=== PATIENT | female | born 1965 | race Caucasian/White ===

== ENCOUNTER 2020-05-23 09:45 | Outpatient (RCR) | payer MEDICARE, OTHER, SELFPAY ==
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
--- NOTE | 2020-04-02 17:15 | P.PNPS_ITS ---
TMS Daily Progress Note Daily TMS Progress Note Date of Service: 04/02/20 Week #: 1 Treatment #(03-16): 1 PHQ-9 Pre-Treatment (03-13): 26 PHQ-9 Most Recent (03-13): 26 Reviewed: TMS Tech Note Reviewed Verification: I have reviewed the TMS Distribution Associate Note and agree with the contents. The patient remains a candidate to continue TMS treatment per pro tocol.
--- NOTE | 2020-04-03 21:11 | HO.TMSDAILY2 ---
TMS Daily Progress Note Daily TMS Progress Note Date of Service: 04/03/20 Week #: 1 Treatment #(03-16): 2 PHQ-9 Pre-Treatment (03-13): 26 PHQ-9 Most Recent (03-13): 26 Reviewed: TMS Tech Note Reviewed Verification: I have reviewed the TMS Party Plan Sales Unit Advisor Note and agree with the contents. The patient remains a candidate to continue TMS treatment per protocol.
--- NOTE | 2020-04-04 22:29 | HO.TMSDAILY2 ---
TMS Daily Progress Note Daily TMS Progress Note Date of Service: 04/04/20 Week #: 1 Treatment #(03-16): 3 PHQ-9 Pre-Treatment (03-13): 26 PHQ-9 Most Recent (03-13): 26 Reviewed: TMS Tech Note Reviewed Verification: I have reviewed the TMS Orange Picker Machine Operator Note and agree with the contents. The patient remains a candidate to continue TMS treatment per protocol.
--- NOTE | 2020-04-05 23:07 | P.PNPS_ITS ---
TMS Daily Progress Note Daily TMS Progress Note Date of Service: 04/05/20 Treatment #(03-16): 3 PHQ-9 Pre-Treatment (03-13): 26 PHQ-9 Most Recent (03-13): 26 Verification: I have reviewed the TMS Mining Detail Draftsperson Note and agree with the contents. The patient remains a candidate to continue TMS treatment per protocol.
--- NOTE | 2020-04-08 21:27 | HO.TMSDAILY2 ---
TMS Daily Progress Note Daily TMS Progress Note Date of Service: 04/08/20 Week #: 1 Treatment #(03-16): 4 PHQ-9 Pre-Treatment (03-13): 26 PHQ-9 Most Recent (03-13): 26 Reviewed: TMS Tech Note Reviewed Verification: I have reviewed the TMS Body And Frame Technician Note and agree with the contents. The patient remains a candidate to continue TMS treatment per protocol.
--- NOTE | 2020-04-09 21:29 | HO.TMSDAILY2 ---
TMS Daily Progress Note Daily TMS Progress Note Date of Service: 04/09/20 Week #: 1 Treatment #(03-16): 5 PHQ-9 Pre-Treatment (03-13): 26 PHQ-9 Most Recent (03-13): 26 Reviewed: TMS Tech Note Reviewed Verification: I have reviewed the TMS Contract Writer Note and agree with the contents. The patient remains a candidate to continue TMS treatment per protocol.
--- NOTE | 2020-04-10 22:04 | P.PNPS_ITS ---
TMS Daily Progress Note Daily TMS Progress Note Date of Service: 04/10/20 Week #: 2 Treatment #(03-16): 6 PHQ-9 Pre-Treatment (03-13): 26 PHQ-9 Most Recent (03-13): 26 Reviewed: TMS Tech Note Reviewed Verification: I have reviewed the TMS Clinical Evaluator Note and agree with the contents. The patient remains a candidate to continue TMS treatment per pro tocol.
--- NOTE | 2020-04-11 22:40 | P.PNPS_ITS ---
TMS Daily Progress Note Daily TMS Progress Note Date of Service: 04/11/20 Week #: 2 Treatment #(03-16): 7 PHQ-9 Pre-Treatment (03-13): 26 PHQ-9 Most Recent (03-13): 26 Reviewed: TMS Tech Note Reviewed Verification: I have reviewed the TMS Transportation Worker Note and agree with the contents. The patient remains a candidate to continue TMS treatment per pro tocol.
--- NOTE | 2020-04-12 23:20 | P.PNPS_ITS ---
TMS Daily Progress Note Daily TMS Progress Note Date of Service: 04/12/20 Week #: 2 Treatment #(03-16): 8 PHQ-9 Pre-Treatment (03-13): 26 PHQ-9 Most Recent (03-13): 26 Reviewed: TMS Tech Note Reviewed Verification: I have reviewed the TMS French Polisher Note and agree with the contents. The patient remains a candidate to continue TMS treatment per pro tocol.
--- NOTE | 2020-04-12 23:23 | P.PNPS_ITS ---
TMS Daily Progress Note Daily TMS Progress Note Date of Service: 04/12/20 Week #: 2 Treatment #(03-16): 8 PHQ-9 Pre-Treatment (03-13): 26 PHQ-9 Most Recent (03-13): 26 Reviewed: TMS Tech Note Reviewed Verification: I have reviewed the TMS Ornamental Iron Worker Apprentice Note and agree with the contents. The patient remains a candidate to continue TMS treatment per pro tocol.
--- NOTE | 2020-04-16 17:29 | HO.TMSDAILY2 ---
TMS Daily Progress Note Daily TMS Progress Note Date of Service: 04/16/20 Week #: 2 Treatment #(03-16): 9 PHQ-9 Pre-Treatment (03-13): 26 PHQ-9 Most Recent (03-13): 18 Reviewed: TMS Tech Note Reviewed Verification: I have reviewed the TMS Chemical Machine Tender Note and agree with the contents. The patient remains a candidate to continue TMS treatment per protocol.
--- NOTE | 2020-04-17 20:53 | P.PNPS_ITS ---
TMS Daily Progress Note Daily TMS Progress Note Date of Service: 04/17/20 Week #: 2 Treatment #(03-16): 10 PHQ-9 Pre-Treatment (03-13): 26 PHQ-9 Most Recent (03-13): 18 Reviewed: TMS Tech Note Reviewed Verification: I have reviewed the TMS Application Support Administrator Note and agree with the contents. The patient remains a candidate to continue TMS treatment per pr otocol.
--- NOTE | 2020-04-18 23:28 | P.PNPS_ITS ---
TMS Daily Progress Note Daily TMS Progress Note Date of Service: 04/18/20 Week #: 3 Treatment #(03-16): 11 PHQ-9 Pre-Treatment (03-13): 26 PHQ-9 Most Recent (03-13): 18 Reviewed: TMS Tech Note Reviewed Verification: I have reviewed the TMS Cyber Systems Engineer Note and agree with the contents. The patient remains a candidate to continue TMS treatment per pr otocol.
--- NOTE | 2020-04-19 22:19 | HO.TMSDAILY2 ---
TMS Daily Progress Note Daily TMS Progress Note Date of Service: 04/19/20 Week #: 3 Treatment #(03-16): 12 PHQ-9 Pre-Treatment (03-13): 26 PHQ-9 Most Recent (03-13): 18 Reviewed: TMS Tech Note Reviewed Verification: I have reviewed the TMS Straight Line Edger Note and agree with the contents. The patient remains a candidate to continue TMS treatment per protocol.
--- NOTE | 2020-04-22 21:20 | HO.TMSDAILY2 ---
TMS Daily Progress Note Daily TMS Progress Note Date of Service: 04/23/20 Week #: 3 Treatment #(03-16): 13 PHQ-9 Pre-Treatment (03-13): 26 PHQ-9 Most Recent (03-13): 18 Reviewed: TMS Tech Note Reviewed Verification: I have reviewed the TMS Administration Dean Note and agree with the contents. The patient remains a candidate to continue TMS treatment per protocol.
--- NOTE | 2020-04-23 22:08 | HO.TMSDAILY2 ---
TMS Daily Progress Note Daily TMS Progress Note Date of Service: 04/23/20 Week #: 3 Treatment #(03-16): 14 PHQ-9 Pre-Treatment (03-13): 26 PHQ-9 Most Recent (03-13): 18 Reviewed: TMS Tech Note Reviewed Verification: I have reviewed the TMS Early Childhood Coordinator Note and agree with the contents. The patient remains a candidate to continue TMS treatment per protocol.
--- NOTE | 2020-04-25 22:19 | HO.TMSDAILY2 ---
TMS Daily Progress Note Daily TMS Progress Note Date of Service: 04/24/20 Week #: 3 Treatment #(03-16): 15 PHQ-9 Pre-Treatment (03-13): 26 PHQ-9 Most Recent (03-13): 18 Reviewed: TMS Tech Note Reviewed Verification: I have reviewed the TMS Cable Television Line Technician Note and agree with the contents. The patient remains a candidate to continue TMS treatment per protocol.
--- NOTE | 2020-04-26 23:06 | P.PNPS_ITS ---
TMS Daily Progress Note Daily TMS Progress Note Date of Service: 04/26/20 Week #: 4 Treatment #(03-16): 17 PHQ-9 Pre-Treatment (03-13): 26 PHQ-9 Most Recent (03-13): 18 Reviewed: TMS Tech Note Reviewed Verification: I have reviewed the TMS Criminal Attorney Note and agree with the contents. The patient remains a candidate to continue TMS treatment per pr otocol.
--- NOTE | 2020-04-29 22:54 | P.PNPS_ITS ---
TMS Daily Progress Note Daily TMS Progress Note Date of Service: 04/29/20 Week #: 4 Treatment #(03-16): 18 PHQ-9 Pre-Treatment (03-13): 26 PHQ-9 Most Recent (03-13): 18 Reviewed: TMS Tech Note Reviewed Verification: I have reviewed the TMS Sales And Marketing Vice President Note and agree with the contents. The patient remains a candidate to continue TMS treatment per pr otocol.
--- NOTE | 2020-04-30 23:04 | P.PNPS_ITS ---
TMS Daily Progress Note Daily TMS Progress Note Date of Service: 04/30/20 Week #: 4 Treatment #(03-16): 19 PHQ-9 Pre-Treatment (03-13): 26 PHQ-9 Most Recent (03-13): 18 Reviewed: TMS Tech Note Reviewed Verification: I have reviewed the TMS Radio Installer Automobile Note and agree with the contents. The patient remains a candidate to continue TMS treatment per pr otocol.
--- NOTE | 2020-05-01 22:41 | HO.TMSDAILY2 ---
TMS Daily Progress Note Daily TMS Progress Note Date of Service: 05/01/20 Week #: 4 Treatment #(03-16): 20 PHQ-9 Pre-Treatment (03-13): 26 PHQ-9 Most Recent (03-13): 18 Reviewed: TMS Tech Note Reviewed Verification: I have reviewed the TMS Service Captain Note and agree with the contents. The patient remains a candidate to continue TMS treatment per protocol.
--- NOTE | 2020-05-03 23:35 | P.PNPS_ITS ---
TMS Daily Progress Note Daily TMS Progress Note Date of Service: 05/03/20 Week #: 5 Treatment #(03-16): 22 PHQ-9 Pre-Treatment (03-13): 26 PHQ-9 Most Recent (03-13): 18 Reviewed: TMS Tech Note Reviewed Verification: I have reviewed the TMS Hyperbaric Technologist Note and agree with the contents. The patient remains a candidate to continue TMS treatment per pr otocol.
--- NOTE | 2020-05-06 22:28 | P.PNPS_ITS ---
TMS Daily Progress Note Daily TMS Progress Note Date of Service: 05/06/20 Week #: 5 Treatment #(03-16): 23 PHQ-9 Pre-Treatment (03-13): 26 PHQ-9 Most Recent (03-13): 18 Reviewed: TMS Tech Note Reviewed Verification: I have reviewed the TMS Visual Design Lead Note and agree with the contents. The patient remains a candidate to continue TMS treatment per pr otocol.
--- NOTE | 2020-05-07 22:04 | HO.TMSDAILY2 ---
TMS Daily Progress Note Daily TMS Progress Note Date of Service: 05/07/20 Week #: 5 Treatment #(03-16): 24 PHQ-9 Pre-Treatment (03-13): 26 PHQ-9 Most Recent (03-13): 18 Reviewed: TMS Tech Note Reviewed Verification: I have reviewed the TMS Interior Design Assistant Note and agree with the contents. The patient remains a candidate to continue TMS treatment per protocol.
--- NOTE | 2020-05-08 21:36 | HO.TMSDAILY2 ---
TMS Daily Progress Note Daily TMS Progress Note Date of Service: 05/09/20 Week #: 5 Treatment #(03-16): 25 PHQ-9 Pre-Treatment (03-13): 26 PHQ-9 Most Recent (03-13): 18 Reviewed: TMS Tech Note Reviewed Verification: I have reviewed the TMS Metallographer Note and agree with the contents. The patient remains a candidate to continue TMS treatment per protocol.
--- NOTE | 2020-05-08 21:38 | P.PNPS_ITS ---
TMS Daily Progress Note Daily TMS Progress Note Date of Service: 05/09/20 Week #: 6 Treatment #(03-16): 26 PHQ-9 Pre-Treatment (03-13): 26 PHQ-9 Most Recent (03-13): 18 Reviewed: TMS Tech Note Reviewed Verification: I have reviewed the TMS Trimmer And Borer Machine Operator Note and agree with the contents. The patient remains a candidate to continue TMS treatment per pr otocol.
--- NOTE | 2020-05-09 21:40 | P.PNPS_ITS ---
TMS Daily Progress Note Daily TMS Progress Note Date of Service: 05/09/20 Week #: 5 Treatment #(03-16): 26 PHQ-9 Pre-Treatment (03-13): 26 PHQ-9 Most Recent (03-13): 18 Reviewed: TMS Tech Note Reviewed Verification: I have reviewed the TMS Sewage Treatment Plant Operator Note and agree with the contents. The patient remains a candidate to continue TMS treatment per pr otocol.
--- NOTE | 2020-05-10 21:49 | P.PNPS_ITS ---
TMS Daily Progress Note Daily TMS Progress Note Date of Service: 05/10/20 Week #: 6 Treatment #(03-16): 27 PHQ-9 Pre-Treatment (03-13): 26 PHQ-9 Most Recent (03-13): 18 Reviewed: TMS Tech Note Reviewed Verification: I have reviewed the TMS Assistant Housekeeping Manager Note and agree with the contents. The patient remains a candidate to continue TMS treatment per pr otocol.
--- NOTE | 2020-05-13 22:03 | P.PNPS_ITS ---
TMS Daily Progress Note Daily TMS Progress Note Date of Service: 05/13/20 Week #: 6 Treatment #(03-16): 28 PHQ-9 Pre-Treatment (03-13): 26 PHQ-9 Most Recent (03-13): 18 Reviewed: TMS Tech Note Reviewed Verification: I have reviewed the TMS Rubber Vulcanizing Machine Operator Note and agree with the contents. The patient remains a candidate to continue TMS treatment per pr otocol.
--- NOTE | 2020-05-14 22:06 | HO.TMSDAILY2 ---
TMS Daily Progress Note Daily TMS Progress Note Date of Service: 05/14/20 Week #: 6 Treatment #(03-16): 29 PHQ-9 Pre-Treatment (03-13): 26 PHQ-9 Most Recent (03-13): 18 Reviewed: TMS Tech Note Reviewed Verification: I have reviewed the TMS Principal Database Developer Note and agree with the contents. The patient remains a candidate to continue TMS treatment per protocol.
--- NOTE | 2020-05-15 22:45 | P.PNPS_ITS ---
TMS Daily Progress Note Daily TMS Progress Note Date of Service: 05/15/20 Week #: 6 Treatment #(03-16): 30 PHQ-9 Pre-Treatment (03-13): 26 PHQ-9 Most Recent (03-13): 18 Reviewed: TMS Tech Note Reviewed Verification: I have reviewed the TMS Brick Cleaner Note and agree with the contents. The patient remains a candidate to continue TMS treatment per pr otocol.
--- NOTE | 2020-05-16 21:14 | P.PNPS_ITS ---
TMS Daily Progress Note Daily TMS Progress Note Date of Service: 05/16/20 Week #: 7 Treatment #(03-16): 31 PHQ-9 Pre-Treatment (03-13): 26 PHQ-9 Most Recent (03-13): 18 Reviewed: TMS Tech Note Reviewed Verification: I have reviewed the TMS Mail Processing Equipment Mechanic Note and agree with the contents. The patient remains a candidate to continue TMS treatment per pr otocol.
--- NOTE | 2020-05-20 21:04 | HO.TMSDAILY2 ---
TMS Daily Progress Note Daily TMS Progress Note Date of Service: 05/20/20 Week #: 8 Treatment #(03-16): 33 PHQ-9 Pre-Treatment (03-13): 26 PHQ-9 Most Recent (03-13): 18 Reviewed: TMS Tech Note Reviewed Verification: I have reviewed the TMS Geoscience Laboratory Technician Note and agree with the contents. The patient remains a candidate to continue TMS treatment per protocol.
--- NOTE | 2020-05-21 22:28 | P.PNPS_ITS ---
TMS Daily Progress Note Daily TMS Progress Note Date of Service: 05/21/20 Week #: 8 Treatment #(03-16): 34 PHQ-9 Pre-Treatment (03-13): 26 PHQ-9 Most Recent (03-13): 18 Reviewed: TMS Tech Note Reviewed Verification: I have reviewed the TMS Housekeeping Assistant Note and agree with the contents. The patient remains a candidate to continue TMS treatment per pr otocol.
--- NOTE | 2020-05-22 22:29 | P.PNPS_ITS ---
TMS Daily Progress Note Daily TMS Progress Note Date of Service: 05/22/20 Week #: 8 Treatment #(03-16): 35 PHQ-9 Pre-Treatment (03-13): 26 PHQ-9 Most Recent (03-13): 18 Reviewed: TMS Tech Note Reviewed Verification: I have reviewed the TMS Zinc Plating Machine Operator Note and agree with the contents. The patient remains a candidate to continue TMS treatment per pr otocol.
--- NOTE | 2020-05-23 22:50 | HO.TMSDAILY2 ---
TMS Daily Progress Note Daily TMS Progress Note Date of Service: 05/23/20 Week #: 8 Treatment #(03-16): 36 PHQ-9 Pre-Treatment (03-13): 26 PHQ-9 Most Recent (03-13): 18 Reviewed: TMS Tech Note Reviewed Verification: I have reviewed the TMS Oil Refinery Process Technician Note and agree with the contents. The patient remains a candidate to continue TMS treatment per protocol.
== END 2020-05-23 10:22 | disposition home or self-care (01) ==
LOC: HO.PTMS 09:45
PROVIDERS: Visit Provider Psychiatry & Neurology Psychiatry
DX: F33.2 Major depressive disorder, recurrent severe without psychotic features (principal); F41.1 Generalized anxiety disorder; F41.0 Panic disorder [episodic paroxysmal anxiety]
CPT/HCPCS: 90867; 90868